=== PATIENT | female | born 1990 | race Caucasian/White ===

== ENCOUNTER 2016-09-18 06:35 | Inpatient (IN) | payer MEDICAID ==
[~2016-09-18] VITALS: Ht 167.6 cm; Wt 118.4 kg
--- NOTE | ~2016-09-18 | FD ---
ADMIT: 09/18/2016 RM/LOC: 227 [facility] MR#: [id number] [address] [facility] [place], [place] [address] [address] [place] [address] Final Diagnosis SEX: F AGE: 26 : 1990 ADMISSION DATE: 09/18/2016 DISCHARGE DATE: 09/20/2016 FINAL DIAGNOSIS: 1. Intrauterine at term. 2. Chronic hypertension. PROCEDURE: Spontaneous vaginal delivery. Nadya Moreno MD/ lobito JOB #: [id number] CC: Nadya Moreno MD, Attending Physician Nadya Moreno MD, Family Physician
[~2016-09-18 06:35] MED LIST: COLACE-DPS100 MG PO; FEOSOL-DPS325 MG PO; LEXAPRO DPS10 MG PO; MOTRIN-DPS800 MG PO; NIPPLECREAM TP; NORVASC5 MG PO; PRENATAL VIT1 TAB PO; TYLENOL EXTRA500 M1 PO
--- NOTE | 2016-10-16 08:55 | HP ---
ADMIT: 09/18/2016 RM/LOC: 227 [facility] MR#: [id number] [address] [facility] [place], [place] [address] [address] [place] [address] History and Physical SEX: F AGE: 26 : 1990 DATE OF SERVICE: REASON FOR ADMISSION: Induction due to chronic hypertension. HISTORY OF PRESENT ILLNESS: The patient is a 26-year-old, 2, para 1-0- 0-1, who presented to Labor and Delivery at 37 and 4/7th weeks' gestation by last menstrual period with estimated date of confinement 10/05/2016. The patient's has been complicated by chronic hypertension, which has been stable off medications throughout . At the time of admission, patient denies any contractions, vaginal bleeding, or loss of fluid. LABORATORY DATA: Blood type A positive, antibody screen negative, RPR nonreactive, rubella immune, group B Strep negative, HIV negative, gonorrhea and chlamydia negative, and hepatitis B surface antigen negative. PAST MEDICAL HISTORY: 1. Anxiety. 2. Chronic hypertension. PAST SURGICAL HISTORY: 1. Tonsillectomy in 1995. 2. Cholecystectomy in 2007. CURRENT MEDICATIONS: vitamins daily. ALLERGIES: BACTRIM, WHICH CAUSES A RASH AND ITCHING. SOCIAL HISTORY: The patient is . She denies any alcohol, tobacco, or drug use. PHYSICAL EXAMINATION: VITAL SIGNS: On admission, blood pressure 134/96, pulse 69, temperature 98.2, respirations 20. GENERAL: The patient is alert and oriented, in no acute distress. HEART: Regular rate and rhythm without murmurs, gallops, or rubs. LUNGS: Clear to auscultation bilaterally. ABDOMEN: Soft, nontender, gravid. ADMIT: 09/18/2016 RM/LOC: 227 [facility] MR#: [id number] [address] [facility] [place], [place] [address] [address] [place] [address] History and Physical SEX: F AGE: 26 : 1990 EXTREMITIES: No edema. No calf tenderness. heart tones are in the 140s with moderate variability and accelerations present. Contractions are rare. Cervix 2 cm dilated, un-effaced, and -2 station. ASSESSMENT AND PLAN: 1. A 26-year-old, 2, para 1-0-0-1 at 37 and 4/7th weeks' gestation. 2. Chronic hypertension. Due to hypertension, the plan is to proceed with induction of labor with misoprostol. Anticipate spontaneous vaginal delivery. 3. Obesity in . Weight gain has been appropriate in . Nadya Moreno MD/ shalini JOB #: [id number] CC: Nadya Moreno, Attending Physician Nadya Moreno, Family Physician
--- NOTE | 2016-10-16 09:00 | OR ---
ADMIT: 09/18/2016 RM/LOC: 227 [facility] MR#: [id number] [address] [facility] [place], [place] [address] [address] [place] [address] Operative/Delivery Room Report SEX: F AGE: 26 : 1990 SURGERY DATE: 09/19/2016 SURGEON: Nadya Moreno MD PROCEDURE: Removal of epidural catheter. INDICATIONS FOR PROCEDURE: The patient is a 26-year-old 2, para 1-0-0- 1, who presented to Labor and Delivery at 37-4/7 weeks' gestation for scheduled induction of labor at term secondary to chronic hypertension. The patient had an epidural placed for pain control during labor. DESCRIPTION OF PROCEDURE: The patient was placed in the sitting position after delivery and the patient's epidural catheter was removed without difficulty. The tip was noted to be intact. The patient tolerated the procedure well. Nadya Moreno MD/ shalini JOB #: [id number] CC: Nadya Moreno, Attending Physician Nadya Moreno, Family Physician
--- NOTE | 2016-10-16 09:00 | OR ---
ADMIT: 09/18/2016 RM/LOC: 227 [facility] MR#: [id number] [address] [address] [address] [place] [address] Operative/Delivery Room Report SEX: F AGE: 26 : 1990 SURGERY DATE: 09/19/2016 SURGEON: Nadya Moreno MD PROCEDURE: Spontaneous vaginal delivery. PREOPERATIVE DIAGNOSES: 1. Intrauterine at 37-4/7 weeks' gestation. 2. Chronic hypertension. POSTOPERATIVE DIAGNOSES: 1. Intrauterine at 37-4/7 weeks' gestation. 2. Chronic hypertension. FINDINGS: Live-born male with scores of 7 at 1 minute and 9 at 5 minutes. Weight 6 pounds 12 ounces. ESTIMATED BLOOD LOSS: 150 mL. ANESTHESIA: Epidural. COMPLICATIONS: None. INDICATIONS FOR PROCEDURE: The patient is a 26-year-old, 2, para 1-0- 0-1, who presented to Labor and Delivery at 37-4/7 weeks' gestation for scheduled induction of labor at term secondary to chronic hypertension. The patient's blood pressures have been fairly well controlled off medications throughout the . Due to chronic hypertension, the patient's labor was induced at 37 weeks. The patient received one dose of misoprostol and then had Pitocin for induction of labor. The patient progressed through labor, completely dilated and pushed, bringing the 's vertex to the perineum. DESCRIPTION OF PROCEDURE: The patient was noted to be complete and pushing with the infant's vertex to the perineum. The patient pushed and the infant's ADMIT: 09/18/2016 RM/LOC: 227 [facility] MR#: [id number] [address] [address] [address] [place] [address] Operative/Delivery Room Report SEX: F AGE: 26 : 1990 vertex delivered in the ANNE position over midline. She continued to push. The anterior shoulder delivered, the posterior shoulder followed, and the remainder of the delivered without difficulty as well. There was a nuchal cord x1, which was relieved without difficulty. The was dried and handed off to the mother's abdomen, where nursing personnel were in attendance, and 20 units of Pitocin were placed in the IV bag to firm the uterus. The cord was clamped and cut, and the placenta delivered intact spontaneously. Cervix was examined and was noted to be free of lacerations. The vaginal vault and perineum were examined and were also noted to be free of lacerations. The patient tolerated the procedure well. All sponge and needle counts were correct. The patient and her recovered in the room in stable condition. Nadya Moreno MD/ shalini JOB #: [id number] CC: Nadya Moreno, Attending Physician Nadya Moreno, Family Physician
== END 2016-09-20 13:10 | disposition home or self-care (01) | DRG 774 ==
LOC: 2LDRP 06:35 → BC 06:35 → 2LDRP 06:36 → BC 10-05 08:00
PROVIDERS: ADMIT Obstetrics & Gynecology
PROC: 3E033VJ Introduction of Other Hormone into Peripheral Vein, Percutaneous Approach (ICD-10-PCS; principal; 2016-09-19)
PROC: 3E0P7GC Introduction of Other Therapeutic Substance into Female Reproductive, Via Natural or Artificial Opening (ICD-10-PCS; principal; 2016-09-19)
PROC: 10E0XZZ Delivery of Products of Conception, External Approach (ICD-10-PCS; principal; 2016-09-19)
DX: O10.02 Pre-existing essential hypertension complicating childbirth (principal); O69.81X0 Labor and delivery complicated by cord around neck, without compression, not applicable or unspecified; Z3A.37 37 weeks gestation of pregnancy; Z37.0 Single live birth